=== PATIENT | male | born 1965 | race Caucasian/White ===

== ENCOUNTER 2017-03-28 19:45 | Emergency (ER) | payer OTHER ==
[~2017-03-28] VITALS: Ht 185.4 cm; Wt 106.6 kg
[~2017-03-28 19:45] MED LIST: AMIODARONE HCL400 MG PO; DILTIAZEM HCL120 M2 PO; FUROSEMIDE40 MG PO; LORAZEPAM1 MG PO; METOPROLOL TART50 MG PO; PANTOPRAZOLE SO40 MG PO; PERCOCET 325 MG1 TA2 PO; PRAVASTATIN SOD20 MG PO; PROAIR HFA0.09 MG/Ac INH; VICODIN5-300 PO; XARELTO20 MG PO
--- NOTE | 2017-03-28 20:05 | ED ANIMAL BITE/WOUND CHECK ---
History of Present Illness General Chief Complaint: Animal/Insect Bite Stated Complaint: DOGBITE Source: patient Exam Limitations: no limitations Vital Signs & Intake/Output Vital Signs & Intake/Output Vital Signs Date Time Temp Pulse Resp B/P B/P Pulse O2 O2 Flow FiO2 Mean Ox Delivery Rate 03/28 2215 98.4 79 18 133/65 97 Room Air 03/28 2118 97.7 77 22 131/85 100 ED Intake and Output 03/29 0000 03/28 1200 Intake Total 0 Output Total Balance 0 Intake, Oral 0 Patient 235 lb Weight Allergies Coded Allergies: No Known Allergies (03/28/17) Reconcile Medications Albuterol Sulfate (Proair Hfa) 0.09 MG/Actuation RAFI 2 PUFF INH PRN DYSPNEA ( Reported) AMIODARONE HCL (Amiodarone HCl) 400 MG TABLET 0.5 TAB PO BID HEART (Reported) Amoxicillin/Potassium Clav (Augmentin 875-125 Tablet) 875 MG-125 MG TABLET 1 TAB PO BID DOG BITE Diltiazem Hydrochloride (Diltiazem HCl) 120 MG C24 1 CAP PO DAILY HEART ( Reported) Furosemide 40 MG TABLET 1 TAB PO BID DIURETIC (Reported) HYDROCODONE/ACETAMINOPHEN (Hydrocodon-Acetaminophen 5-325) 5 MG-325 MG TABLET 1 TAB PO Q8P PRN pain Ketorolac Tromethamine 10 MG TABLET 1 TAB PO TID PAIN RECEIVED IM IN ER Lorazepam 1 MG TABLET 1 TAB PO PRN ANXIETY (Reported) Metoprolol Tartrate 50 MG TABLET 1 TAB PO Q6H HEART (Reported) Oxycodone HCl/Acetaminophen (Percocet 5-325 MG Tablet) 5 MG-325 MG TABLET 1 TAB PO TID PRN PAIN Pantoprazole Sodium 40 MG TABLET.DR 1 TAB PO DAILY AC GI (Reported) Pravastatin (Pravastatin Sodium) 20 MG TAB 1 TAB PO QPM CHOLESTEROL (Reported ) Rivaroxaban (Xarelto) 20 MG TABLET 1 TAB PO DAILY BLOOD THINNER (Reported) with food Triage Nurses Notes Reviewed? yes Duration: constant Timing: single episode today Injury Environment: home Is Injury an Animal Bite? 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 Patient's tetanus is up-to-date. No medications given prior to arrival. Patient did state that he drank a few beers prior to arrival (MICAELA NEWTON) Past History Travel History Traveled to [place] past 21 day No Medical History Any Pertinent Medical History? see below for history Cardiovascular: CAD Gastrointestinal: GERD Surgical History Surgical History: CABG Psychosocial History What is your primary language Bulgarian Family History Family History, If Any: Relation not specified for: *No pertinent family history Hx Contributory? No (MICAELA NEWTON) Review of Systems Review of Systems Constitutional: Reports: no symptoms. EENTM: Reports: no symptoms. Respiratory: Reports: no symptoms. Cardiovascular: Reports: no symptoms. GI: Reports: no symptoms. Genitourinary: Reports: no symptoms. Musculoskeletal: Reports: no symptoms. Skin: Reports: no symptoms. Neurological/Psychological: Reports: no symptoms. Hematologic/Endocrine: Reports: see HPI, bleeding. Immunologic/Allergic: Reports: no symptoms. All Other Systems: Reviewed and Negative (MICAELA NEWTON) Physical Exam Physical Exam General Appearance: no apparent distress, alert Comments: Well-developed well-nourished no apparent distress. HEENT: Atraumatic, extraocular motion intact Neck: Supple, no lymphadenopathy Back: Nontender Respiratory: No respiratory distress Right hand dermatomes intact capillary refill less than 2 seconds radial pulse + 2 decreased active range of motion noted at flexion however full resisted range of motion noted with 1-5 digits for flexion and extension no tendon deficit Neuro: Alert and oriented x3 Psych: Mood affect normal, normal memory normal judgment. Diagram Hands, Palmar: 1) 1.5 cm laceration with tendon sheath visualized however no concerns of tendon deficit no active bleeding no exposed bone 2) 5 mm non-gaping linear subcutaneous laceration 3) Superficial 5 mm non-gaping linear flap laceration Hands, Dorsum: 1) 1.5 cm subcutaneous linear laceration (MICAELA NEWTON) Progress Differential Diagnosis: abscess, cellulitis, joint infection, tenosysnovitis, TENDON LACERATION, FRACTURE, FOREIGN BODY RETENTION Plan of Care: Current Medications Sig/Renetta Start time Last Medication Dose Stop Time Status Admin Ketorolac 30 MG ONCE ONE 03/28 2230 UNVr Tromethamine 03/28 2231 (Toradol) On initial examination there is no concerns of tendon deficit Patient has decreased active range of motion however is RESISTANCE with flexion exam of digits to the right hand. Using sterile technique of Betadine initially 7 mL of 1% lidocaine was used for local anesthesia of the laceration sites. To the dorsal aspect of patient's hand which measures approximate 1.5 cm using 3-0 #1 suture was placed in which margins were grossly revised To the 1.5 cm laceration to the ventral aspect of patient's hand number to 3-0 sutures were placed in which margins were grossly revised Been placing Xeroform to the wound sites with gauze and then I placed a thumb spica splint using Ortho-Glass to the right thumb crossing over the wrist then I placed Sky wrap for support. Pre-and post neurovascular was intact. \No osseous injury on x-ray Patient was strongly advised to follow-up with plastic surgery No concerns again of tendon deficit patient was neurovascularly intact Patient was instructed on close monitoring for wound infection he was given 1.5 g of Unasyn in the ER Upon discharge patient looks well no apparent distress and will comply discharge instructions and had no questions There was no exacerbation bleeding while patient was in the emergency room (JENN FRIEDMAN,MICAELA) Diagnostic Imaging: Viewed by Me: Radiology Read. Radiology Impression: no fracture Comments: PATIENT: GAEL RIVERA PRESENT AGE: 51 PATIENT ACCOUNT NO: [id number] : 67 LOCATION: [facility] ORDERING PHYSICIAN: MICAELA FRIEDMAN SERVICE DATE: 03/28/17 EXAM TYPE: RAD - XRY-HAND, RIGHT EXAMINATION: XR HAND, RIGHT CLINICAL INFORMATION: Dog bite. Evaluate for fracture. COMPARISON: None TECHNIQUE: AP, lateral, and oblique views of the right hand. FINDINGS: Carpal rows are well aligned. No metacarpal fracture. Mild degenerative changes of the first carpometacarpal joint. Subcutaneous lucencies overlying tissues adjacent to the first carpal metacarpal joint likely represent lacerations, consistent with reported history of dog bite. No radiopaque foreign body visualized. IMPRESSION: Subcutaneous lucencies overlying tissues adjacent to the first carpal metacarpal joint likely represent lacerations, consistent with reported history of dog bite. No radiopaque foreign body. No fracture. DICTATED BY: KELSEY BUI MD DATE/TIME DICTATED:03/28/172102 (MICAELA NEWTON) Departure Departure Disposition: HOME OR SELF CARE Condition: Stable Clinical Impression Primary Impression: Laceration of right hand Secondary Impressions: Dog bite of right hand Referrals: MICHELLE LOZADA MD (PCP/Family) NELLY MERLOS,SAM Soto Additional Instructions: As discussed tomorrow please call plastic surgeon Dr. Blake to make an appointment for further evaluation and treatment of your symptoms. Begin to change the dressings once a day with the extra bandages Xeroform provided to the emergency room and begin using the splints of the thumb to improve healing. At approximately 10 days follow-up with your plastic surgeon or return to emergency room for suture removal. If you note signs of infection redness, pain, swelling , discharge return to emergency room. Begin the prescription of ketorolac and Percocet for pain and begin the perception of Augmentin as directed for the full course to prevent infection. Departure Forms: Customer Survey General Discharge Information Prescriptions: Current Visit Scripts Ketorolac Tromethamine 1 TAB PO TID #15 TAB RECEIVED IM IN ER Oxycodone HCl/Acetaminophen (Percocet 5-325 MG Tablet) 1 TAB PO TID PRN PAIN #12 TAB Amoxicillin/Potassium Clav (Augmentin 875-125 Tablet) 1 TAB PO BID #20 TAB (MICAELA NEWTON) PA/CHANGE CONSULTANT Co-Sign Statement Statement: ED Attending supervision documentation- [X] I saw and evaluated the patient. I have also reviewed all the pertinent lab results and diagnostic results. I agree with the findings and the plan of care as documented in the PA's/CHANGE CONSULTANT's documentation. [X] I have reviewed the ED Record and agree with the PA's/CHANGE CONSULTANT's documentation. [] Additions or exceptions (if any) to the PAs/CHANGE CONSULTANT's note and plan are summarized below: [] (MEMO MERLOS,GARFIELD)
[2017-03-28] MEDS ORDERED: KETOROLAC TROME10 M1 PO (20:57)
--- NOTE | 2017-03-28 21:09 | RADIOLOGY REPORT ---
EXAMINATION: XR HAND, RIGHT CLINICAL INFORMATION: Dog bite. Evaluate for fracture. COMPARISON: None TECHNIQUE: AP, lateral, and oblique views of the right hand. FINDINGS: Carpal rows are well aligned. No metacarpal fracture. Mild degenerative changes of the first carpometacarpal joint. Subcutaneous lucencies overlying tissues adjacent to the first carpal metacarpal joint likely represent lacerations, consistent with reported history of dog bite. No radiopaque foreign body visualized. IMPRESSION: Subcutaneous lucencies overlying tissues adjacent to the first carpal metacarpal joint likely represent lacerations, consistent with reported history of dog bite. No radiopaque foreign body. No fracture.
[2017-03-28 22:15] VITALS: BP 133/65
[2017-03-28] MEDS ORDERED: PERCOCET 5-3251 EACH PO (22:19)
[2017-03-28] MEDS ORDERED: AUGMENTIN 875-1 EACH PO (22:19)
== END 2017-03-28 22:43 ==
LOC: ERH 19:45
DX: S61.411A Laceration without foreign body of right hand, initial encounter (principal); W54.0XXA Bitten by dog, initial encounter
CPT/HCPCS: 73130-RT; 96372; 96374; 96375; J1885